=== PATIENT | male | born 1985 | race Hispanic/Latino ===

== ENCOUNTER 2020-12-20 23:54 | Emergency (ER) | payer BC, SELFPAY ==
[2020-12-21] MEDS ORDERED: Boostrix 0.5 ML (Tdap) VIAL ONE (00:56)
[2020-12-21] MEDS ORDERED: Lidocaine 1% w/Epinephrine 1:100K 20 ML VIAL ONE (00:56)
== END 2020-12-21 03:57 | disposition home or self-care (01) ==
LOC: ERS 23:54
DX: S51.812A Laceration without foreign body of left forearm, initial encounter (principal); Z23 Encounter for immunization; W26.0XXA Contact with knife, initial encounter; Y99.0 Civilian activity done for income or pay
CPT/HCPCS: 12032; 90471; 90715